=== PATIENT | male | born 1990 | race African-American/Black ===

== ENCOUNTER 2021-08-22 09:23 | Emergency (ER) | payer OTHER ==
[~2021-08-22] VITALS: Ht 172.7 cm; Wt 78.2 kg
[2021-08-22 09:29] VITALS: TEMP 98.1
[2021-08-22 11:09] VITALS: BP 129/84; PULSE 54
== END 2021-08-22 11:10 | disposition home or self-care (01) ==
LOC: COL.ER 09:23
DX: M54.50 Low back pain, unspecified (principal); Z87.828 Personal history of other (healed) physical injury and trauma
CPT/HCPCS: J1885; J2360

== ENCOUNTER → 2021-10-24 | Outpatient (CLI) | payer OTHER | LOC: MHCPAIN 12:17 | DX: M54.50 Low back pain, unspecified (principal); M79.18 Myalgia, other site | CPT/HCPCS: G0463 ==